=== PATIENT | female | born 1990 | race Caucasian/White ===

== ENCOUNTER 2021-01-15 16:26 | Emergency (ER) | payer OTHER ==
[~2021-01-15] VITALS: Ht 162.6 cm; Wt 63.5 kg
--- NOTE | 2021-01-15 17:00 | NUR ---
The patient is in ER bed #15 for lac on the forehead, left hand s/p glf, -ko, glass frame fell on her head. Denies pain. No bleeding noted at this time. VSS wnl. Will continue to monitor the patient.
[2021-01-15] MEDS ORDERED: TDAP [DIPH/PERTUSSIS/TET] 0.5 ML VIAL IM ONE ×3 (17:22→17:31)
[2021-01-15] MEDS ORDERED: IBUP-1955 PO (18:42)
[2021-01-15 19:29] VITALS: BP 120/74
--- NOTE | 2021-01-15 19:29 | NUR ---
Patient discharged to home in stable condition. Written and verbal after care instructions given. Patient verbalizes understanding of instruction. The patient left ER in stable condition.
== END 2021-01-15 18:50 | disposition home or self-care (01) ==
LOC: ER 16:29
DX: S01.81XA Laceration without foreign body of other part of head, initial encounter (principal); S01.01XA Laceration without foreign body of scalp, initial encounter; S61.012A Laceration without foreign body of left thumb without damage to nail, initial encounter; S11.81XA Laceration without foreign body of other specified part of neck, initial encounter; Z91.018 Allergy to other foods; Z79.899 Other long term (current) drug therapy; W25.XXXA Contact with sharp glass, initial encounter; Y93.89 Activity, other specified; Y92.89 Other specified places as the place of occurrence of the external cause; Y99.8 Other external cause status
CPT/HCPCS: 12002; 12011; 70250; 70360; 73140; 90471; 90715; 99284; A6403

== ENCOUNTER 2021-01-17 14:42 | Emergency (ER) | payer OTHER ==
[~2021-01-17] VITALS: Ht 162.6 cm; Wt 63.5 kg
[~2021-01-17 14:42] MED LIST: IBUP-1955 PO
[2021-01-17 14:45] VITALS: BP 128/71
--- NOTE | 2021-01-17 15:10 | NUR ---
Patient discharged to home in stable condition. Written and verbal after care instructions given. Patient verbalizes understanding of instruction.
== END 2021-01-17 15:09 | disposition home or self-care (01) ==
LOC: ER 14:50
DX: S01.81XD Laceration without foreign body of other part of head, subsequent encounter (principal); Z91.018 Allergy to other foods; X58.XXXD Exposure to other specified factors, subsequent encounter

== ENCOUNTER 2021-01-22 10:15 | Emergency (ER) | payer OTHER ==
[~2021-01-22] VITALS: Ht 162.6 cm; Wt 63.5 kg
[2021-01-22 10:23] VITALS: BP 120/82
--- NOTE | 2021-01-22 10:25 | NUR ---
BIB SELD FOR SUTURE REMOVAL FROM FOREHEAD AND RIGHT SCIENTOLOGY. DENIES PAIN. NO S/S INFECTION NOTED AT THE SITE. WILL CONTINUE TO MONITOR THE PATIENT.
--- NOTE | 2021-01-22 11:07 | NUR ---
Patient discharged to home in stable condition. Written and verbal after care instructions given. Patient verbalizes understanding of instruction. The patient left ER in stable condition.
== END 2021-01-22 11:08 | disposition home or self-care (01) ==
LOC: ER 10:17
DX: S01.81XD Laceration without foreign body of other part of head, subsequent encounter (principal); Z91.018 Allergy to other foods; Z79.899 Other long term (current) drug therapy; X58.XXXD Exposure to other specified factors, subsequent encounter